=== PATIENT | female | born 1990 | race Caucasian/White ===

== ENCOUNTER 2017-05-17 12:05 | Inpatient (IN) | payer OTHER ==
[~2017-05-17] VITALS: Ht 154.9 cm; Wt 64.9 kg
[2017-05-17 13:05] LABS: BASOPHIL % 0.6 % (0-2); PLATELET COUNT 314 x10^3mcL (130-400)
[2017-05-17 13:14] LABS: CALCIUM 8.6 mg/dL (8.5-10.1); CARBON DIOXIDE 22.5 mmol/L (21-32); CHLORIDE SERUM 101 mmol/L (98-107); CREATININE SERUM 0.8 mg/dL (0.6-1.0); GFR1 > 60 mL/min; GLUCOSE SERUM 107 mg/dL (74-106); POTASSIUM SERUM 3.4 mmol/L (3.5-5.1); SODIUM SERUM 135 mmol/L (136-145)
[2017-05-17 13:19] LABS: ALBUMIN 3.3 g/dL (3.4-5.0); ALKALINE PHOSPHATASE 88 U/L (46-116); ALT/SGPT 20 U/L (14-59); AST/SGOT 18 U/L (15-37); BILIRUBIN TOTAL 0.6 mg/dL (0.20-1.00); TOTAL PROTEIN, SERUM 7.7 g/dL (6.4-8.2)
[2017-05-17 13:20] LABS: RED CELL DISTRIBUTION WIDTH 20.1 % (11.5-14.5)
[2017-05-17] MEDS ORDERED: ALBUTEROL0.63 MG/3 (13:39)
[2017-05-17 14:13] LABS: UA SPECIFIC GRAVITY 1.015 (1.005-1.035); microscopic required? YES; urine erythrocyte TRACE (NEGATIVE)
[2017-05-17 15:16] VITALS: BP 106/65
[2017-05-17 15:46] LABS: T3 TOTAL 0.82 ng/mL
[2017-05-17 15:52] LABS: MAGNESIUM 1.6 mg/dL (1.8-2.4); PHOSPHOROUS 1.9 mg/dL (2.5-4.9)
[2017-05-17 15:58] LABS: FREE T4 1.28 ng/dL (0.76-1.46); FREE THYROXINE INDEX 3.1 ug/dL (1.4-4.5); T4(THYROXINE) 9.7 ug/dL (4.7-13.3)
[2017-05-17 16:25] VITALS: BP 106/65
[2017-05-17 21:32] VITALS: BP 113/67
[2017-05-18 04:09] LABS: IRON 11 ug/dL (50-170); TOTAL IRON BINDING CAPACITY 392 ug/dL (250-450)
[2017-05-18 05:41] VITALS: BP 127/79
[2017-05-18 07:23] LABS: CALCIUM 7.9 mg/dL (8.5-10.1); CARBON DIOXIDE 23.5 mmol/L (21-32); CHLORIDE SERUM 104 mmol/L (98-107); CREATININE SERUM 0.7 mg/dL (0.6-1.0); GFR1 > 60 mL/min; GLUCOSE SERUM 113 mg/dL (74-106); MAGNESIUM 2.3 mg/dL (1.8-2.4); PHOSPHOROUS 2.5 mg/dL (2.5-4.9); POTASSIUM SERUM 3.6 mmol/L (3.5-5.1); SODIUM SERUM 135 mmol/L (136-145)
[2017-05-18 07:25] LABS: BASOPHIL % 0.4 % (0-2); PLATELET COUNT 302 x10^3mcL (130-400)
[2017-05-18 07:56] LABS: RED BLOOD CELLS 4.19 M/mm3 (4.10-5.10)
[2017-05-18 08:11] LABS: RED CELL DISTRIBUTION WIDTH 20.1 % (11.5-14.5)
[2017-05-18 09:16] VITALS: BP 119/74
[2017-05-18 13:43] VITALS: BP 126/81
[2017-05-18 17:26] VITALS: BP 105/72
[2017-05-18 20:47] VITALS: BP 116/79
[2017-05-19 05:34] VITALS: BP 109/72
[2017-05-19 06:05] LABS: BASOPHIL % 0.5 % (0-2); PLATELET COUNT 306 x10^3mcL (130-400)
[2017-05-19 06:19] LABS: RED CELL DISTRIBUTION WIDTH 20.5 % (11.5-14.5)
[2017-05-19 06:47] LABS: CALCIUM 8.4 mg/dL (8.5-10.1); CARBON DIOXIDE 23.3 mmol/L (21-32); CHLORIDE SERUM 105 mmol/L (98-107); CREATININE SERUM 0.6 mg/dL (0.6-1.0); GFR1 > 60 mL/min; GLUCOSE SERUM 96 mg/dL (74-106); MAGNESIUM 2.1 mg/dL (1.8-2.4); PHOSPHOROUS 3.8 mg/dL (2.5-4.9); POTASSIUM SERUM 3.8 mmol/L (3.5-5.1); SODIUM SERUM 138 mmol/L (136-145)
[2017-05-19 08:06] LABS: rbc morphology (normal/abnorm) ABNORMAL (NORMAL)
[2017-05-19 09:04] VITALS: BP 128/71
[2017-05-19] MEDS ORDERED: LAC PO (09:50)
[2017-05-19] MEDS ORDERED: FER300 PO (09:50)
[2017-05-19] MEDS ORDERED: CEFTIN500 MG PO (09:50)
[2017-05-19] MEDS ORDERED: ZIT250 PO (09:50)
[2017-05-19] MEDS ORDERED: COUGH100 MG/5 M PO (09:50)
[2017-05-19] MEDS ORDERED: THERA TABS1 TAB PO (09:50)
[2017-05-19 10:55] VITALS: BP 128/71
== END 2017-05-19 12:45 | disposition home or self-care (01) | DRG 720 ==
LOC: ED 12:05 → DU 13:34 → MU 13:34 → DU 14:45 → MU 05-19 06:45
PROVIDERS: Emergency Medicine; ADMIT Family Medicine
DX: A41.9 Sepsis, unspecified organism (principal); N17.0 Acute kidney failure with tubular necrosis; J18.9 Pneumonia, unspecified organism; E83.42 Hypomagnesemia; J45.901 Unspecified asthma with (acute) exacerbation; E87.1 Hypo-osmolality and hyponatremia; E83.39 Other disorders of phosphorus metabolism; N39.0 Urinary tract infection, site not specified; E87.6 Hypokalemia; R73.03 Prediabetes; D50.9 Iron deficiency anemia, unspecified; F41.9 Anxiety disorder, unspecified; Z83.3 Family history of diabetes mellitus; Z80.9 Family history of malignant neoplasm, unspecified
CPT/HCPCS: 82962; 83880; 84439; 87804; 90658; 90732; 94150; J0696; J1885; J2405; J2916; J3475; J7030; J7620; Q0092